=== PATIENT | female | born 1990 | race Native Hawaiian/Other Pacific Islander ===

== ENCOUNTER 2022-07-19 06:56 | Inpatient (IN) | payer OTHER ==
[~2022-07-19] VITALS: Ht 170.2 cm; Wt 80.5 kg
[~2022-07-19 06:56] MED LIST: CYCL10 PO; Chewable Multi1 EAC1 PO; IBUP800 PO; Naprosyn500 MG PO; OXYACE5T PO; OXYACE7.5T PO; PROM25 PO; RXCYCL10 PO
[2022-07-19 08:06] LABS: BASOPHILS ABSOLUTE AUTO 0.05 K/mm3 (0.00-0.23); BASOPHILS PERCENT AUTO 0 % (0-2); EOSINOPHILS ABSOLUTE AUTO 0.12 K/mm3 (0.00-0.68); EOSINOPHILS PERCENT AUTO 1 % (0-6); Hematocrit 35.3 % (33.0-51.0); Hemoglobin 11.9 g/dL (11.5-16.0); IMMATURE GRAN ABSOLUTE AUTO 0.12 K/mm3 (0.00-0.10); IMMATURE GRAN PERCENT AUTO 1 % (0-1); LYMPHOCYTES ABSOLUTE AUTO 3.19 K/mm3 (0.84-5.20); LYMPHOCYTES PERCENT AUTO 26 % (21-46); MONOCYTES ABSOLUTE AUTO 0.56 K/mm3 (0.16-1.47); MONOCYTES PERCENT AUTO 5 % (4-13); Mean Corpuscular HGB 30.2 pg (26.0-34.0); Mean Corpuscular HGB Conc 33.7 g/dL (31.5-36.5); Mean Corpuscular Volume 90 fL (80-100); Mean Platelet Volume 10.8 fL (9.1-12.4); NEUTROPHILS ABSOLUTE AUTO 8.39 K/mm3 (1.96-9.15); NEUTROPHILS PERCENT AUTO 67 % (41-73); Platelet Count 346 K/mm3 (150-400); RDW Coefficient Variation 12.8 % (11.7-14.2); RDW Standard Deviation 41.6 fL (35.1-46.3); Red Blood Cell Count 3.94 M/mm3 (3.80-5.20); White Blood Cell Count 12.43 K/mm3 (4.00-11.30)
[2022-07-19] MEDS ORDERED: METF500 PO (08:27)
--- NOTE | 2022-07-19 10:39 | NUR ---
07/19/22 1039 MARY TAMEZ 1028 DELIVERY OF VIABLE FEMALE CHILD WITH VIGOROUS CRY AND BREECH PRESENTATION. CORD BLOOD GIVEN TO EDILBERTO LEE AND CORD GIVEN TO RT SAM Rankin FOR CORD GASSES. PLACENTA BAGGED AND PLACED IN PLACENTA CONTAINER. MOTHER TOLERATING WELL.
[2022-07-19 10:45] LABS: PCO2 Cord - Arterial 50.1 mmHg (40-50); pH Cord - Arterial 7.32 (7.28-7.35)
[2022-07-19 10:47] LABS: PO2 Cord - Arterial < 16 mmHg (16-20)
[2022-07-19 10:49] LABS: PCO2 Cord - Venous 39.3 mmHg (40-50); PO2 Cord - Venous 22.6 mmHg (28-32)
[2022-07-20 05:12] LABS: BASOPHILS ABSOLUTE AUTO 0.03 K/mm3 (0.00-0.23); BASOPHILS PERCENT AUTO 0 % (0-2); EOSINOPHILS ABSOLUTE AUTO 0.12 K/mm3 (0.00-0.68); EOSINOPHILS PERCENT AUTO 1 % (0-6); Hematocrit 29.1 % (33.0-51.0); Hemoglobin 9.8 g/dL (11.5-16.0); IMMATURE GRAN ABSOLUTE AUTO 0.06 K/mm3 (0.00-0.10); IMMATURE GRAN PERCENT AUTO 1 % (0-1); LYMPHOCYTES ABSOLUTE AUTO 3.56 K/mm3 (0.84-5.20); LYMPHOCYTES PERCENT AUTO 30 % (21-46); MONOCYTES ABSOLUTE AUTO 0.64 K/mm3 (0.16-1.47); MONOCYTES PERCENT AUTO 5 % (4-13); Mean Corpuscular HGB Conc 33.7 g/dL (31.5-36.5); Mean Corpuscular Volume 92 fL (80-100); Mean Platelet Volume 10.4 fL (9.1-12.4); NEUTROPHILS ABSOLUTE AUTO 7.48 K/mm3 (1.96-9.15); NEUTROPHILS PERCENT AUTO 63 % (41-73); Platelet Count 289 K/mm3 (150-400); RDW Standard Deviation 43.4 fL (35.1-46.3); Red Blood Cell Count 3.16 M/mm3 (3.80-5.20); White Blood Cell Count 11.89 K/mm3 (4.00-11.30)
--- NOTE | 2022-07-20 15:20 | NUR ---
ASSUMED CARE REPT FROM Sheila CONKLIN RN, STABLE PT CARING FOR SELF AND NB, IN ROOM ASSISTING WITH CARE
--- NOTE | 2022-07-20 18:15 | NUR ---
1805 C/O NAUSEA, MEDICATED WITH IV ZOFRAN 4MG
[2022-07-21] MEDS ORDERED: IBUP800 PO (13:08)
[2022-07-21] MEDS ORDERED: Percocet 5-3251 EACH (13:08)
== END 2022-07-21 11:22 | disposition home or self-care (01) | DRG 788 ==
LOC: BC 06:56
PROVIDERS: ADMIT Obstetrics & Gynecology
PROC: 10D00Z1 Extraction of Products of Conception, Low, Open Approach (ICD-10-PCS; principal; 2022-07-19 09:45)
DX: O32.1XX0 Maternal care for breech presentation, not applicable or unspecified (principal); O24.425 Gestational diabetes mellitus in childbirth, controlled by oral hypoglycemic drugs; Z3A.39 39 weeks gestation of pregnancy; Z37.0 Single live birth; Z98.890 Other specified postprocedural states; Z90.6 Acquired absence of other parts of urinary tract; Z79.899 Other long term (current) drug therapy; Z79.84 Long term (current) use of oral hypoglycemic drugs
CPT/HCPCS: 36415; 82803; 82947; 85025; 86850; 86900; 86901; A9270; J0690; J1885; J2270; J2370; J2405; J3360; J7120

== ENCOUNTER 2023-01-09 06:46 | Day surgery (SDC) | payer OTHER ==
[~2023-01-09] VITALS: Ht 168 cm; Wt 70.3 kg
[2023-01-09] VITALS (13 sets, daily range): BP systolic 107–121; BP diastolic 61–78
[~2023-01-09 06:46] MED LIST changes: +METF500 PO; +Percocet 5-3251 EACH
--- NOTE | 2023-01-09 08:09 | NUR ---
Ambulatory in Day Surgery. Pre-Op teaching done. Pt verbalizes understanding. Patient confirms NPO status and agrees with scheduled surgery. Patient reports completing Chlorhexadine shower X1 prior to admission to hospital. History, Chart, Medications and Allergies reviewed before start of procedure. Lungs clear T/O to Auscultation.
--- NOTE | 2023-01-09 13:17 | NUR ---
PT ARRIVED TO THE ROOM AT APPROXIMATELY 1210. PT ALERT AND ORIENTED AT TIME OF ARRIVAL TO THE ROOM. PT REPORTS PAIN AT 5/10, PO PAIN MEDICATION GIVEN. LAP SITES X4 WNL, CLOSED WITH WOUND GLUE. SCANT VAGINAL BLEEDING. VERIFIED WITH DR. KAUR AND DR. CHAMBERLAIN THAT IT IS OK FOR PT TO BREASTFEED. WILL CONTINUE TO MONITOR.
--- NOTE | 2023-01-09 14:06 | NUR ---
BAUM CATH REMOVED AT 1335. PT WAS ANXIOUS ABOUT CATHETER REMOVAL BUT TOLERATED WELL.
[2023-01-09] MEDS ORDERED: IBUP800 PO (17:34)
[2023-01-09] MEDS ORDERED: Percocet 5-3251 EACH PO (17:36)
[2023-01-09] MEDS ORDERED: PROM25 PO (17:37)
[2023-01-09] MEDS ORDERED: SIME80CH PO (17:37)
--- NOTE | 2023-01-09 18:32 | NUR ---
DISCHARGE PT PROVIDED WITH WRITTEN AND VERBAL DISCHARGE INSTRUCTIONS, SHE AND HER SPOUSE REPORTED UNDERSTANDING. PT MEETING ALL GOALS PRIOR TO DISCHARGE. PT ABLE TO TOLERATE PO, PAIN MANAGED, PT AMBULATING IN THE HALWAYS, VSS AT TIME OF DISCHARGE. PT ASSISTED OUT IN W/C.
== END 2023-01-09 18:14 | disposition home or self-care (01) ==
LOC: ORSCMMR 06:46 → ORD 08:00 → ORSCMMR 08:00 → SURS 12:03 → ORSCMMR 18:14
PROVIDERS: Obstetrics & Gynecology
PROC: 0UT7FZZ Resection of Bilateral Fallopian Tubes, Via Natural or Artificial Opening With Percutaneous Endoscopic Assistance (ICD-10-PCS; principal; 2023-01-09 08:00)
PROC: 0U5F4ZZ Destruction of Cul-de-sac, Percutaneous Endoscopic Approach (ICD-10-PCS; principal; 2023-01-09 08:00)
PROC: 8E0W4CZ Robotic Assisted Procedure of Trunk Region, Percutaneous Endoscopic Approach (ICD-10-PCS; principal; 2023-01-09 08:00)
PROC: 0UT9FZZ Resection of Uterus, Via Natural or Artificial Opening With Percutaneous Endoscopic Assistance (ICD-10-PCS; principal; 2023-01-09 08:00)
DX: N80.9 Endometriosis, unspecified (principal); N92.1 Excessive and frequent menstruation with irregular cycle; N94.6 Dysmenorrhea, unspecified; N94.10 Unspecified dyspareunia; R10.2 Pelvic and perineal pain; N80.03 Adenomyosis of the uterus; F17.210 Nicotine dependence, cigarettes, uncomplicated
CPT/HCPCS: 58571; 58662; S2900; 88305; 88307; A9270; J0690; J1100; J1885; J2250; J2405; J2704; J2765; J3010; J7050; J7120